=== PATIENT | female | born 1955 | race Caucasian/White ===

== ENCOUNTER 2017-09-04 16:54 | Emergency (ER) | payer BC ==
[2017-09-04] MEDS ORDERED: NORMAL SALINE 1000 ML 1,000 ML IV PRN (17:33)
--- NOTE | 2017-09-04 17:34 | ER Document Report ---
ED Medical Screen (RME) - General Chief Complaint: Headache Stated Complaint: DIZZY, BODY PAIN Time Seen by Provider: 09/04/17 17:32 Notes: Patient states she was diagnosed yesterday with an ear infection by her primary doctor. She states today she has severe headache nausea and generalized body aches. TRAVEL OUTSIDE OF THE [place] IN LAST 30 DAYS: No - Related Data Allergies/Adverse Reactions: No Known Allergies Allergy (Verified 09/04/17 16:57) Home Medications: Current Home Medications Amoxicillin [Amoxicillin] 1 tab PO BID 09/04/17 [History] Past Medical History - Social History Chew tobacco use (# tins/day): No Frequency of alcohol use: Occasional Drug Abuse: None - Past Medical History Cardiac Medical History: Reports: Hx Hypertension Renal/ Medical History: Denies: Hx Peritoneal Dialysis Psychiatric Medical History: Reports: Hx Depression Past Surgical History: Reports: Hx Abdominal Surgery, Hx Bowel Surgery - g sleeve, Hx Cholecystectomy, Hx Hysterectomy - Immunizations Hx Diphtheria, Pertussis, Tetanus Vaccination: Yes Physical Exam - Vital signs Vitals: Temp Pulse Resp BP Pulse Ox 98.6 F 94 22 H 139/87 H 96 09/04/17 16:58 09/04/17 16:58 09/04/17 16:58 09/04/17 16:58 09/04/17 16:58 Course - Vital Signs Vital signs: Temp Pulse Resp BP Pulse Ox 98.6 F 94 22 H 139/87 H 96 09/04/17 16:58 09/04/17 16:58 09/04/17 16:58 09/04/17 16:58 09/04/17 16:58
--- NOTE | 2017-09-04 18:04 | RADIOLOGY REPORT (SQ) ---
EXAM DESCRIPTION: CT HEAD WITHOUT COMPLETED DATE/TIME: 09/04/2017 5:55 pm REASON FOR STUDY: pain COMPARISON: None. TECHNIQUE: Axial images acquired through the brain without intravenous contrast. Images reviewed wi th bone, brain and subdural windows. Images stored on PACS. All CT scanners at this facility use dose modulation, iterative reconstruction, and/or weight based d osing when appropriate to reduce radiation dose to as low as reasonably achievable (ALARA). [facility]: Dose Right [facility]: CareDose [facility]: Dose Right [facility]: Teradose 4D [facility]: Zuu Onlnine RADIATION DOSE: 49mGy. LIMITATIONS: None. FINDINGS: VENTRICLES: Normal size and contour. CEREBRUM: No masses. No hemorrhage. No midline shift. No evidence for acute infarction. Normal gra y/white matter differentiation. No areas of low density in the white matter. CEREBELLUM: No masses. No hemorrhage. No alteration of density. No evidence for acute infarction. EXTRAAXIAL SPACES: No fluid collections. No masses. ORBITS AND GLOBE: No intra- or extraconal masses. Normal contour of globe without masses. CALVARIUM: No fracture. PARANASAL SINUSES: There is small amount of fluid in the right maxillary sinus. Some of the ethmoid air cells are opacified. SOFT TISSUES: No mass or hematoma. OTHER: No other significant finding. IMPRESSION: Mild sinus disease. There is no acute intracranial finding. EVIDENCE OF ACUTE STROKE: NO. COMMENT: Quality ID # [id number]: Final reports with documentation of one or more dose reduction techniques (e.g., Automated exposure control, adjustment of the mA and/or kV according to patient size, use of iterative reconstruction technique) TECHNICAL DOCUMENTATION: JOB ID: [id number] [employer]- All Rights Reserved
[2017-09-04 19:19] LABS: ALANINE AMINOTRANSFERASE 42 U/L (9-52); ALBUMIN 4.4 g/dL (3.5-5.0); ALKALINE PHOSPHATASE 94 U/L (38-126); ANION GAP 12 (5-19); ASPARTATE AMINO TRANSFERASE 41 U/L (14-36); BILIRUBIN,DIRECT 0.4 mg/dL (0.0-0.4); BILIRUBIN,TOTAL 0.9 mg/dL (0.2-1.3); BLOOD UREA NITROGEN 12 mg/dL (7-20); CALCIUM 9.9 mg/dL (8.4-10.2); CARBON DIOXIDE 28 mmol/L (22-30); CHLORIDE 105 mmol/L (98-107); CREATININE RESULT 0.99 mg/dL (0.52-1.25); GLUCOSE 103 mg/dL (75-110); POTASSIUM 3.8 mmol/L (3.6-5.0); SODIUM 144.6 mmol/L (137-145); TOTAL PROTEIN 7.5 g/dL (6.3-8.2)
[2017-09-04] MEDS ORDERED: DIPHENHYDRAMINE HCL 50 MG/ML VIAL IV ONE (19:40)
[2017-09-04] MEDS ORDERED: KETOROLAC TROMETHAMINE INJ/PF 30 MG/1 ML SDV IV ONE (19:40)
[2017-09-04] MEDS ORDERED: MECLIZINE HCL 25 MG TABLET PO ONE (19:40)
[2017-09-04] MEDS ORDERED: PROCHLORPERAZINE EDISYLATE INJ 10 MG/2 ML VIAL IV ONE (19:40)
[2017-09-04] MEDS ORDERED: OXYMETAZOLINE HCL 0.05% NASAL SPRAY 15 ML BOTTLE NASL ONE (19:42)
--- NOTE | 2017-09-04 19:42 | ER Document Report ---
ED General - General Chief Complaint: Headache Stated Complaint: DIZZY, BODY PAIN Time Seen by Provider: 09/04/17 17:32 Notes: Patient is a 61-year-old female who presents with multiple complaints including vertigo, bilateral ear pain, headache, sinus pressure, and nausea. She was seen by her primary care doctor yesterday for these symptoms, diagnosed with having bilateral otitis media with associated perforation on the right and started on amoxicillin at that time. She states that this is not yet improved her symptoms. She does have a history of vertigo in the past but states that it was much more severe than this as it was secondary to Mnire's disease. She denies any fever, vomiting, abdominal pain, chest pain, but does note that she has had a dry, nonproductive cough. She denies any focal weakness or numbness. She states that her vertigo does not prevent her from ambulating. She has not had any recent falls or trauma. She states moving her head seems to worsen her symptoms. She has not tried any to improve her symptoms. TRAVEL OUTSIDE OF THE [place] IN LAST 30 DAYS: No - Related Data Allergies/Adverse Reactions: No Known Allergies Allergy (Verified 09/04/17 16:57) Home Medications: Current Home Medications Amoxicillin [Amoxicillin] 1 tab PO BID 09/04/17 [History] Past Medical History - General Information source: Patient - Social History Smoking Status: Never Smoker Chew tobacco use (# tins/day): No Frequency of alcohol use: Occasional Drug Abuse: None Lives with: Spouse/Significant other Family History: Reviewed & Not Pertinent Patient has suicidal ideation: No Patient has homicidal ideation: No - Past Medical History Cardiac Medical History: Reports: Hx Hypertension Renal/ Medical History: Denies: Hx Peritoneal Dialysis Psychiatric Medical History: Reports: Hx Depression Past Surgical History: Reports: Hx Abdominal Surgery, Hx Bowel Surgery - g sleeve, Hx Cholecystectomy, Hx Hysterectomy - Immunizations Hx Diphtheria, Pertussis, Tetanus Vaccination: Yes Review of Systems - Review of Systems Notes: Constitutional: Negative for fever. HENT: Negative for sore throat.Positive for bilateral ear pain Eyes: Negative for visual changes. Cardiovascular: Negative for chest pain. Respiratory: Negative for shortness of breath. Gastrointestinal: Negative for abdominal pain, vomiting or diarrhea. Genitourinary: Negative for dysuria. Musculoskeletal: Negative for back pain. Skin: Negative for rash. Neurological: Headache and vertigo 10 point ROS negative except as marked above and in HPI. Physical Exam - Vital signs Vitals: Temp Pulse Resp BP Pulse Ox 98.6 F 94 22 H 139/87 H 96 09/04/17 16:58 09/04/17 16:58 09/04/17 16:58 09/04/17 16:58 09/04/17 16:58 Interpretation: Normal Notes: PHYSICAL EXAMINATION: GENERAL: Appears uncomfortable but no acute distress HEAD: Atraumatic, normocephalic. EYES: Pupils equal round and reactive to light, extraocular movements intact, sclera anicteric, conjunctiva are normal. ENT: nares patent, oropharynx clear without exudates. Moist mucous membranes. TMs are bulging bilaterally, erythematous. There is a small perforation on the right NECK: Normal range of motion, supple without lymphadenopathy LUNGS: Breath sounds clear to auscultation bilaterally and equal. No wheezes rales or rhonchi. HEART: Regular rate and rhythm without murmurs ABDOMEN: Soft, nontender, normoactive bowel sounds. No guarding, no rebound. No masses appreciated. EXTREMITIES: Normal range of motion, no pitting or edema. No cyanosis. NEUROLOGICAL: Face symmetric. Tongue protrudes midline. Extraocular motions intact. Pupils are 2 mm and equally reactive. Normal speech, normal gait. 5 out of 5 strength in both the distal and proximal upper and lower extremities bilaterally. Sensation is grossly intact throughout. Finger to nose testing normal. Pronator drift normal. PSYCH: Anxious, tearful SKIN: Warm, Dry, normal turgor, no rashes or lesions noted. Course - Re-evaluation Re-evalutation: 09/04/17 19:41 Patient presents with a multitude of complaints but appears to be most localized to vertigo. Patient has a severe otitis media bilaterally with a component of perforation on the right which likely accounts for her vertigo. She has very been trying started on amoxicillin yesterday for this otitis media but states that this has not resolved her vertigo. She has no neurologic deficits on examination, normal cerebellar testing and is able to ambulate. He did not clinically suspect a cerebral stroke as a clinical history appears much more consistent with a peripheral vertigo in the setting of a sinusitis, bilateral otitis media and upper respiratory illness. CT the head obtained in triage is unremarkable without any evidence of an intracranial bleed or large mass. EKG unremarkable. Basic labs likewise unremarkable. Patient does also have a component of photophobia as well as a diffuse headache so will also treat with a migraine cocktail, provide meclizine and reassess 09/04/17 22:02 Patient has had marked improvement of her symptoms after administration of a migraine cocktail and meclizine. She denies any ongoing vertigo or headache at this time. She is able to ambulate without difficulty. At this time will discharge with return precautions and follow-up recommendations. Verbal discharge instructions given a the bedside and opportunity for questions given. Medication warnings reviewed. Patient is in agreement with this plan and has verbalized understanding of return precautions and the need for primary care follow-up in the next 24-72 hours. - Vital Signs Vital signs: Temp Pulse Resp BP Pulse Ox 98.5 F 100 14 124/62 97 09/04/17 22:17 09/04/17 22:17 09/04/17 22:17 09/04/17 22:17 09/04/17 22:17 - Laboratory Result Diagrams: 09/04/17 18:43 Laboratory results interpreted by me: 09/04/17 18:43 Est GFR (Non-Af Amer) 57 L AST 41 H - Diagnostic Test Radiology reviewed: Image reviewed, Reports reviewed Radiology results interpreted by me: 09/05/17 04:42 CT head: No acute intracranial bleed Chest x-ray: No acute infiltrate - EKG Interpretation by Me Additional EKG results interpreted by me: 09/05/17 04:42 Normal sinus rhythm. Rate 88. No ST elevations or actions. QTC is 446. Discharge - Discharge Clinical Impression: Vertigo Bilateral otitis media Qualifiers: Otitis media type: unspecified Qualified Code(s): H66.93 - Otitis media, unspecified, bilateral Headache Qualifiers: Headache type: unspecified Headache chronicity pattern: acute headache Intractability: not intractable Qualified Code(s): R51 - Headache Condition: Good Disposition: HOME, SELF-CARE Additional Instructions: You were seen today for lightheadedness/dizziness. Your symptoms appear to be likely due to your bilateral ear infection. Please take the amoxicillin that was prescribed by her primary care doctor until you have completed the entire course. You may take the meclizine was prescribed as needed for vertigo. Please follow closely with your primary care physician in the next 1-3 days. Return if you pass out, have additional episodes of lightheadedness, develop weakness/numbness, have persistent vomiting, chest pain, shortness of breath or any other symptoms that are concerning to you Prescriptions: Meclizine HCl 25 mg PO Q6HP PRN #30 tablet PRN Reason:
--- NOTE | 2017-09-04 20:33 | RADIOLOGY REPORT (SQ) ---
EXAM DESCRIPTION: CHEST SINGLE VIEW COMPLETED DATE/TIME: 09/04/2017 8:22 pm REASON FOR STUDY: cough COMPARISON: None. EXAM PARAMETERS: NUMBER OF VIEWS: One view. TECHNIQUE: Single frontal radiographic view of the chest acquired. RADIATION DOSE: NA LIMITATIONS: None. FINDINGS: LUNGS AND PLEURA: No opacities, masses or pneumothorax. No pleural effusion. MEDIASTINUM AND HILAR STRUCTURES: No masses. Contour normal. HEART AND VASCULAR STRUCTURES: Heart normal in size. Normal vasculature. BONES: No acute findings. HARDWARE: None in the chest. OTHER: No other significant finding. IMPRESSION: NO ACUTE RADIOGRAPHIC FINDING IN THE CHEST. TECHNICAL DOCUMENTATION: JOB ID: [id number] [employer]- All Rights Reserved
--- NOTE | 2017-09-04 21:14 | EKG REPORT ---
SEVERITY:- ABNORMAL ECG - SINUS RHYTHM INCOMPLETE RIGHT BUNDLE BRANCH BLOCK : Confirmed by: Lyndsey Edwards MD 04-Sep-2017 21:14:35
[2017-09-04 22:29] VITALS: BP 124/62
== END 2017-09-04 22:29 | disposition home or self-care (01) ==
LOC: ER 16:54
DX: H66.93 Otitis media, unspecified, bilateral (principal); R51 Headache; R42 Dizziness and giddiness; H92.03 Otalgia, bilateral; R09.81 Nasal congestion; R11.0 Nausea
CPT/HCPCS: 93005; 99284; 96374; 96375; 80053; 84484; 71010; 70450; 93010; J1200; J1885; J3490; J0780

== ENCOUNTER 2017-10-31 07:45 | Day surgery (SDC) | payer BC ==
[~2017-10-31 07:45] MED LIST: CEFAZOLIN 2 GM/D5W RTU 2 GM/50 ML RTUPB IV PRN
[2017-10-31 08:17] LABS: APPEARANCE,URINE SLIGHTLY-CLOUDY; BILIRUBIN,URINE NEGATIVE (NEGATIVE); COLOR,URINE YELLOW; GLUCOSE, URINE NEGATIVE (NEGATIVE); KETONES,URINE NEGATIVE (NEGATIVE); LEUKOCYTE ESTERASE,URINE NEGATIVE (NEGATIVE); NITRITE,URINE NEGATIVE (NEGATIVE); PROTEIN,URINE NEGATIVE (NEGATIVE); URINE SPECIFIC GRAVITY 1.023; UROBILINOGEN,URINE NEGATIVE mg/dL (<2.0)
[2017-10-31 08:24] LABS: ABSOLUTE EOSINOPHILS # (AUTO) 0.5 10^3/uL (0.0-0.6); ABSOLUTE LYMPHOCYTES (AUTO) 2.5 10^3/uL (0.5-4.7); ABSOLUTE MONOCYTES (AUTO) 0.4 10^3/uL (0.1-1.4); ABSOLUTE NEUT (AUTO) 2.7 10^3/uL (1.7-8.2); BASOPHILS % (AUTO) 0.5 % (0-2); EOSINOPHILS % (AUTO) 7.4 % (0-6); HEMATOCRIT 39.5 % (36.0-47.0); HEMOGLOBIN 13.4 g/dL (12.0-15.5); LYMPHOCYTES % (AUTO) 41.6 % (13-45); MEAN CORPUSCULAR HEMOGLOBIN 29.4 pg (27.0-33.4); MEAN CORPUSCULAR VOLUME 86 fl (80-97); MONOCYTES % (AUTO) 6.7 % (3-13); PLATELET COUNT 247 10^3/uL (150-450); RED BLOOD COUNT 4.57 10^6/uL (3.72-5.28); RED CELL DISTRIBUTION WIDTH 13.9 % (11.5-14.0); SEGMENTED NEUTROPHILS % (AUTO) 43.8 % (42-78); TOTAL CELLS COUNTED % (AUTO) 100 %; WHITE BLOOD COUNT 6.1 10^3/uL (4.0-10.5)
[2017-10-31 08:44] LABS: ANION GAP 11 (5-19); BLOOD UREA NITROGEN 21 mg/dL (7-20); CARBON DIOXIDE 25 mmol/L (22-30); CHLORIDE 107 mmol/L (98-107); GLUCOSE 110 mg/dL (75-110); POTASSIUM 4.5 mmol/L (3.6-5.0); SODIUM 142.7 mmol/L (137-145)
[2017-10-31] MEDS ORDERED: BUPIVACAINE HCL 0.5 % INJ/PF 30 ML SDV ONE ×2 (09:24→11:00)
[2017-10-31] MEDS ORDERED: LIDOCAINE 1%/EPINEPHRINE INJ 20 ML VIAL ONE ×2 (09:25→11:00)
[2017-10-31] MEDS ORDERED: ACETAMINOPHEN 100 ML IV ONE (10:26)
[2017-10-31] MEDS ORDERED: FENTANYL CITRATE INJ/PF 100 MCG/2 ML AMPUL ONE ×2 (10:26→11:30)
[2017-10-31] MEDS ORDERED: PROPOFOL INJ 200 MG/20 ML VIAL IV ONE (10:26)
[2017-10-31] MEDS ORDERED: MIDAZOLAM 2 MG/2 ML INJ ONE (10:26)
[2017-10-31] MEDS ORDERED: DIPHENHYDRAMINE HCL 50 MG/ML VIAL IV PRN (10:45)
[2017-10-31] MEDS ORDERED: PROMETHAZINE HCL INJ 25 MG/1 ML VIAL IV PRN ×2 (10:45)
[2017-10-31] MEDS ORDERED: MORPHINE SULFATE 10 MG/ML INJ IV PRN (10:45)
[2017-10-31] MEDS ORDERED: FENTANYL CITRATE INJ/PF 100 MCG/2 ML AMPUL IV PRN ×3 (10:45)
[2017-10-31] MEDS ORDERED: MEPERIDINE HCL/PF INJ 25 MG/1 ML DISP.SYRIN IV PRN (10:45)
[2017-10-31] MEDS ORDERED: OXYCODONE-ACETAMINOPHEN 5-325 MG TABLET PO PRN ×2 (10:45)
--- NOTE | 2017-10-31 11:14 | Operative Report ---
Operative Report DATE OF SURGERY: 10/31/17 PREOPERATIVE DIAGNOSIS: Left medial meniscal tear POSTOPERATIVE DIAGNOSIS: Left medial meniscal tear. Grade 3 chondral malacia medial compartment. Intact ACL. Grade 2, motion lateral compartment. Lateral meniscal tear. 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 The knee is insufflated with accommodation Marcaine, Xylocaine, and epinephrine through medial and lateral infrapatellar portals. Subsequent medial and lateral infrapatellar portals are created for the introduction of arthroscope and debridement instrumentation. The joint is examined in systematic fashion findings as above. Using combination basket Mo, mechanical shaver, electric frequency ablation probe a partial medial meniscectomy was performed from approximately 9:00 to 12:00 in the face of the dial. In a similar fashion a partial lateral meniscectomy performed from approximately 12:00 to 4:00 on the face of the dial. The joint is again examined in systematic fashion with no new findings. Instrumentation was removed. The portals reapproximated interrupted nylon. A sterile compressive dressing was applied. The patient returned to PACU in satisfactory condition.
[2017-10-31] MEDS ORDERED: OXYCODONE HCL IR 5 MG TABLET PO PRN (12:43)
[2017-10-31] MEDS ORDERED: ONDANSETRON 4 MG TAB.RAPDIS SL PRN (12:44)
[2017-10-31 13:17] VITALS: BP 128/78
--- NOTE | 2017-10-31 23:26 | EKG REPORT ---
SEVERITY:- BORDERLINE ECG - SINUS RHYTHM BORDERLINE LEFT AXIS DEVIATION BORDERLINE T ABNORMALITIES, ANT-LAT LEADS : Confirmed by: Kwan Zapien 31-Oct-2017 23:25:34
== END 2017-10-31 13:05 | disposition home or self-care (01) ==
LOC: OROUT 07:45
PROVIDERS: ATTEND Orthopaedic Surgery
PROC: 0SBD4ZZ Excision of Left Knee Joint, Percutaneous Endoscopic Approach (ICD-10-PCS; 2017-10-31)
PROC: 0SBD4ZZ Excision of Left Knee Joint, Percutaneous Endoscopic Approach (ICD-10-PCS; principal; 2017-10-31 09:45)
DX: S83.222A Peripheral tear of medial meniscus, current injury, left knee, initial encounter (principal); S83.282A Other tear of lateral meniscus, current injury, left knee, initial encounter; W19.XXXA Unspecified fall, initial encounter; M22.42 Chondromalacia patellae, left knee; E78.00 Pure hypercholesterolemia, unspecified; I10 Essential (primary) hypertension; I49.9 Cardiac arrhythmia, unspecified; M06.9 Rheumatoid arthritis, unspecified; E66.9 Obesity, unspecified; G47.30 Sleep apnea, unspecified; Z68.41 Body mass index [BMI] 40.0-44.9, adult; Z79.899 Other long term (current) drug therapy
CPT/HCPCS: 36415; 85025; 80048; 81001; 93005; 93010; 29880; J2250; J3010; J3490; J2704; J0690; J0131; 1400